=== PATIENT | male | born 1950 | race Caucasian/White ===

== ENCOUNTER → 2024-04-16 14:16 | Outpatient (REF) | payer BC, SELFPAY | LOC: HWRAD 14:16 | PROVIDERS: ATTENDING PHYSICIAN Physician Assistant Medical | DX: E78.00 Pure hypercholesterolemia, unspecified (principal); Z82.49 Family history of ischemic heart disease and other diseases of the circulatory system | CPT/HCPCS: 75571 ==

== ENCOUNTER → 2024-05-09 07:58 | Outpatient (REF) | payer BC, SELFPAY | LOC: HWRAD 07:58 | PROVIDERS: ATTENDING PHYSICIAN Physician Assistant Medical | DX: R93.89 Abnormal findings on diagnostic imaging of other specified body structures (principal); K76.89 Other specified diseases of liver | CPT/HCPCS: 76700 ==

== ENCOUNTER → 2024-06-22 11:51 | Outpatient (REF) | payer BC, SELFPAY | LOC: MRI 3T 11:51 | PROVIDERS: ATTENDING PHYSICIAN Physician Assistant Medical | DX: K82.8 Other specified diseases of gallbladder (principal) | CPT/HCPCS: 74183 ==

== ENCOUNTER 2024-10-25 11:21 | Emergency (ER) | payer BC, SELFPAY ==
[2024-10-25] VITALS (8 sets, daily range): BP systolic 123–174; BP diastolic 72–91; PULSE 64; BMI 24.4
--- NOTE | 2024-10-25 13:14 | ED.GENMED ---
History of Present Illness
General
Chief Complaint: Dizziness
Time Seen by Provider: 10/25/24 12:36
History of Present Illness
History of Present Illness:
74-year-old male with history of hyperlipidemia presenting to the emergency department for dizziness. Patient reports yesterday he was at his chiropractor office. He denies any manipulation to his neck. He is having treatment to his left leg, has
had ongoing pain and is following with orthopedics. When he sat up, felt very dizzy like he was going to pass out and lay back down. He tried again, however when he stood up, did pass out, caught by the chiropractor. He felt fine after he had
passed out, however this morning when he woke up, symptoms returned. Reports that the dizziness is worse with certain positions and movements. Truly feels very similarly to dizziness he had 22 years ago at which time he was diagnosed with vertigo.
Denies any focal weakness or numbness to his extremities. Denies visual changes. Denies fever, chest pain, difficulty breathing. Denies additional acute medical complaints.
Phy Exam
Physical Exam
Physical Exam:
General: Well-appearing, no clinical signs of dehydration, nontoxic and in no acute distress
HEENT: protecting airway
Neck: appears supple
CV: Normal heart rate, regular rhythm
Resp: No accessory muscle use, no increased work of breathing, lungs clear to auscultation bilaterally
Abd: no distension
Extremities: No deformities, no swelling, no erythema
Neuro: alert, no focal neurologic deficit
: deferred
Rectal: deferred
Psych: Normal affect
Skin: Intact
Course
Orders/Labs/Results
Orders:
Orders
10/25/24 11:23
Electrocardiogram (*1) Urgent
Reason for Study: Vertigo / Dizzy
EKG- Treatment ONCE
10/25/24 12:55
CT Head W/o Iv Contrast Urgent
Comment:
Reason For Exam: dizziness
Orthostatic VS- Treatment ONCE
0.9% Sodium Chloride 1000 ml [Nss] 1,000 ml IV BOLUS
Meclizine [Antivert] 25 mg PO NOW STA
Physical Therapy Consult [Pt Eval And Treat] Urgent
Treatment: vertigo
Activity Level: Ambulate
10/25/24 13:21
Complete Blood Count/With Diff Urgent
Comprehensive Metabolic Panel Urgent
Abnormal Lab Results
10/25/24
13:21
RDW 14.6 H %
(11.5-14.5)
Absolute Neuts (auto) 8.1 H 10^3/uL
(1.4-6.5)
Neutrophils % 80.5 H %
(42.2-75.2)
Lymphocytes % 13.8 L %
(20.5-51.1)
Glucose 104 H mg/dl
(70-99)
10/25/24 13:21
10/25/24 13:21
Vital Signs
Initial and Last Documented VS:
Initial Vital Signs
Temp Pulse Resp BP Pulse Ox
97.8 F 61 20 157/91 98
10/25/24 11:38 10/25/24 11:38 10/25/24 11:38 10/25/24 11:38 10/25/24 11:38
Last Documented Vital Signs
Temp Pulse Resp BP Pulse Ox
97.8 F 67 13 123/72 96
10/25/24 11:38 10/25/24 14:00 10/25/24 14:00 10/25/24 13:00 10/25/24 14:00
MDM/Problems Addressed
MDM/Problems Addressed:
74-year-old male with history of hyperlipidemia presenting for dizziness and syncopal episode. Vital signs on arrival are significant for mild hypertension
On exam, patient is resting comfortably, no acute distress or discomfort. Patient likens the dizziness to spinning sensation and reports that is very similar to the dizziness he had about 22 years ago. Dizziness sounds consistent with vertigo, is
positional, however patient does note that he passed out from a sitting to standing position. Will check orthostatic vital signs. No present focal neurologic deficits, without present concern for central neurologic process. Patient denies any
manipulation to his neck, without any concern for vertebral aneurysm or intracranial injury. Patient afebrile, nontoxic, without concern for systemic infection. EKG obtained, nonischemic, no arrhythmia, without present concern for cardiac
pathology. Will treat with fluids, meclizine, and consult with PT for vestibular therapy
15:00 - Patient's labs are unremarkable. CT brain without acute intracranial abnormality. Patient notes that he is feeling better. Patient was evaluated by physical therapy who felt that meclizine that was given was likely working. No concerning
features on exam, ambulated safely. He was given information for outpatient vestibular therapy. Patient has not an appointment with ENT. Will prescribe meclizine. Return precautions discussed and patient verbalized
*EKG
Interpreted by ED Provider?: Yes
EKG Intrepretation Date: 10/25/24
EKG Intrepretation Time: 13:23
Interpretation: normal
Heart Rate: 57
Rate: bradycardiac
Rhythm: sinus
[place]: normal axis
Interval: normal interval
QRS Pattern: normal QRS
Ischemia: no ischemia
*Critical Care Note
Total Time (30-74mins, 75-104mins- exclusive of procedures): Not Applicable
ED Attending Note
-
Portions of this chart may have been created with voice recognition software.� Occasional wrong word or��sound alike� substitutions may have occurred due to the inherent limitations of voice recognition software.
Discharge Plan
Departure
Patient Disposition: Home (Routine Discharge)
Date of Disposition: 10/25/24
Time of Disposition: 15:03
Patient with high blood pressure during this ER visit?: No
Condition: Good
Discharge Problem:
Dizziness, Vertigo
Instructions: Vertigo (a Type of Dizziness) (DC)
Prescriptions:
New
meclizine 25 mg tablet
25 mg PO BID PRN (Reason: dizziness) 7 Days Qty: 14 0RF
Referrals:
Dimple Koehler PA-C [Family Provider] -
Activity Restrictions/Additional Instructions:
You were seen in the emergency department for dizziness
You were found to have normal blood work, CT imaging of your brain and EKG. You are suspected to have vertigo. Please maintain your appointment with the ear nose and throat doctor and take the meclizine as needed
Please follow-up closely with your primary care physician.
Return to the emergency department for any worsening of your symptoms, or any development of chest pain, difficulty breathing, abdominal pain with persistent vomiting and inability to tolerate food or liquid by mouth (concern for dehydration),
weakness, headache or confusion, fever greater than 100.4, or any additional symptoms that are concerning to you.
Thank you for choosing [facility].
Interventions
Interventions:
*Risk Screen - Suicide Last Done: 10/25/24 14:05
*General Assessment Last Done: 10/25/24 14:05
*Neglect/Abuse Screening Last Done: 10/25/24 14:05
ED- Neurological Assessment Last Done: 10/25/24 14:04
Discharge Date and Time
Print Language: MALAWIAN
[2024-10-25] MEDS: ANTIVERT 25 MG PO (13:18)
[2024-10-25] MEDS: NSS 1000 IV (13:29)
[2024-10-25 13:54] LABS: % Basophils 0.4 % (0-2); % Eosinophils 0.3 % (0-6); % Immature Granulocytes 0.3 % (0-0.5); % Lymphocytes 13.8 % (20.5-51.1); % Monocytes 4.7 % (1.7-9.3); % Neutrophils 80.5 % (42.2-75.2); Absolute Lymphocytes 1.4 10^3/uL (1.2-3.4); Absolute Monocytes 0.5 10^3/uL (0.1-0.6); Absolute Neutrophils 8.1 10^3/uL (1.4-6.5); Hematocrit 45.8 % (39.0-52.0); Hemoglobin 15.2 g/dL (13.0-18.0); Mean Corp Hgb Conc. 33.2 g/dL (33.0-37.0); Mean Corpuscular Hgb 28.2 pg (27.0-31.0); Mean Platelet Volume 10.4 fL (7.4-10.4); Nucleated Red Blood Cells % 0 % (-); Platelet Count 236 10^3/uL (130-400); Red Blood Cell Count 5.39 10^6/uL (4.70-6.10); Red Cell Dist. Width 14.6 % (11.5-14.5); White Blood Cell Count 10.1 10^3/uL (4.8-10.8)
[2024-10-25 14:07] LABS: ALT (SGPT) 27 U/L (0-50); AST (SGOT) 28 U/L (17-59); Albumin 4.1 g/dl (3.5-5.0); Alkaline Phosphatase 110 U/L (38-126); Blood Urea Nitrogen 20 mg/dl (9-20); Calcium 9.8 mg/dl (8.4-10.2); Carbon Dioxide 28 mmol/L (22-30); Chloride 103 mmol/L (98-107); Estimated Creatinine Clearance 90 ml/min; Glucose 104 mg/dl (70-99); Potassium 4.4 mmol/L (3.5-5.1); Sodium 138 mmol/L (135-145); Total Bilirubin 0.8 mg/dl (0.2-1.3); Total Protein 6.7 g/dl (6.3-8.2); eGFR > 60.00
== END 2024-10-25 15:11 | disposition home or self-care (01) ==
LOC: EMR 11:21
PROVIDERS: EMERGENCY PHYSICIAN Student in an Organized Health Care Education/Training Program; FAMILY PHYSICIAN Physician Assistant Medical
DX: R42 Dizziness and giddiness (principal); E78.00 Pure hypercholesterolemia, unspecified
CPT/HCPCS: 99284; 96360; 70450; 80053; 85025; 93005